=== PATIENT | female | born 2000 | race Caucasian/White ===

== ENCOUNTER 2024-07-06 15:58 | Emergency (ER) | payer OTHER, SELFPAY ==
[2024-07-06 16:06] VITALS: BP 116/72; PULSE 70; RESP 17; TEMP 36.5; O2SAT 97
--- NOTE | 2024-07-06 16:15 | DI.RAD_ITS ---
Exam(s) XR ANKLE LT COMPLETE EXAM: XR ANKLE LT COMPLETE CLINICAL HISTORY: L ankle pain, swelling to lateral aspect s/p twist. TECHNIQUE: 2D digital imaging was performed. COMPARISON: No exams were available for comparison FINDINGS: 3 views No evidence of fracture nor widening the ankle mortise. Talar dome unremarkable. Bone density sunni l. No osseous lesions. No osseous tarsal coalition. IMPRESSION: No acute osseous findings in the ankle. DATA REPOSITORY: RADIATION DOSE DELIVERED:
--- NOTE | 2024-07-06 16:40 | ED.GENADUL_ITS ---
Discharge Plan Disposition Patient Disposition: Home Discharge Details Clinical Impression: Ankle sprain Primary Care Provider: None,None ED Provider: Karla Ahumada Home Meds and New Rx's Prescriptions: No Action No Known Home Meds Discharge Instructions Instructions: Ankle Sprain ED Additional Instructions: Your x-ray was negative for fracture. I encourage you to do mobilization of your ankle, use Fredi bandage as needed, and weight-bear as tolerated. Continue ibuprofen and Tylenol as needed. Ice and elevate above heart level frequently to help reduce swelling and pain I advise you to follow-up with express care to have ankle rechecked if you are not feeling significantly better in the next 2 to 3 weeks. It would also be a good idea for you to establish care with a local area with a primary care provider. Discharge Data Discharge Date/Time-TO BE ENTERED AT DEPARTURE: 07/06/24 18:23 HPI General Date/Time Provider Initiated Documentation: 07/06/24 16:06 . HPI Narrative: Ariela is a 24 year old female who presents to the emergency dept today for evaluation of L lateral ankle pain. She reports he was kicking a baseball when she twisted her ankle, causing her to softly fall to the ground. She did hear a pop; denies other injuries. She was initially able to ambulate after the incident. Denies previous ankle injury, distal numbness/tingling, knee pain. Took ibuprofen and APAP prior to arrival. Physical exam remarkable for ecchymosis and swelling to lateral malleolus of L ankle. +CMS to toes, distal pulses intact. No overlying abrasions/skin tears/lacerations. D/dx includes but is not limited to: ankle sprain, distal fibula fracture, other soft tissue injury. No red flags concerning for neurovascular compromise. I independently interpreted the following tests: X-ray reassuring, no acute fracture noted. This was confirmed by radiology. Reviewed discharge instructions for ankle sprain with patient, including RICE, pain control, and importance of establishing care with PCP. Patient came in with Fredi bandage and crutches. Recommend weightbearing as tolerated. She is agreeable with plan of care. Recommend follow-up with express care if symptoms persist, as referral to orthopedics may be helpful. Related Data Home Medications ?Medication ?Instructions ?Recorded ?Confirmed Unknown [No Known Home Meds] 07/06/24 07/06/24 Allergies Allergy/AdvReac Type Severity Reaction Status Date / Time No Known Allergies Allergy Unverified 07/06/24 16:10 General Stated Complaint: Orthopedic SUDHIR: 3 Review of Systems Narrative: see HPI Exam Const General: cooperative, healthy appearing, comfortable and no acute distress Nutritional Appearance: average body habitus Orientation: alert and oriented x3 HENMT Head: normocephalic and atraumatic Resp Effort & Inspection: normal respiratory effort and able to speak in complete sentences Skin General skin exam: no rashes or lesions noted Extrem General: no pedal edema and no calf tenderness Right lower extremity: normal to inspection Left lower extremity: normal capillary refill and ankle Details: tenderness, swelling Details: laterally, abnormal ROM (decreased due to pain) and ecchymosis (lateral malleolus); no abrasions, no lacerations, no foreign bodies and no penetrating wound Course Vital Signs Vital signs: Vital Signs Temperature 36.5 C 07/06/24 16:06 Pulse 70 07/06/24 16:06 Respiratory Rate 17 07/06/24 16:06 Blood Pressure 116/72 07/06/24 16:06 Pulse Oximetry 97 07/06/24 16:06 Temperature 36.5 C 07/06/24 16:06 Temperature Source Temporal Artery Scan 07/06/24 16:06 Pulse 70 07/06/24 16:06 Respiratory Rate 17 07/06/24 16:06 Respiratory Effort Normal, Non-Labored 07/06/24 16:26 Blood Pressure 116/72 07/06/24 16:06 Pulse Oximetry 97 07/06/24 16:06 Oxygen Delivery Method Room Air 07/06/24 16:06 Oxygen Flow Rate 0 07/06/24 16:06 Pain Level 3 07/06/24 16:26 Lab/Test Results Lab/Test Results: POC- Test(urine) Negative Medical Decision Making Imaging Data Radiologic Study: Radiologist's impression: Exam(s) XR ANKLE LT COMPLETE EXAM: XR ANKLE LT COMPLETE CLINICAL HISTORY: L ankle pain, swelling to lateral aspect s/p twist. TECHNIQUE: 2D digital imaging was performed. COMPARISON: No exams were available for comparison FINDINGS: 3 views No evidence of fracture nor widening the ankle mortise. Talar dome unremarkable. Bone density normal. No osseous lesions. No osseous tarsal coalition. IMPRESSION: No acute osseous findings in the ankle. Quality:SDOH Health Related Social Needs: No Data to Display PFSH All Active Problems (Updated 07/06/24 @ 18:21 by Karla Mckeon) Ankle sprain (Acute) Social History Smoking/Tobacco Use Status: Never Smoking risk assessment performed?: Yes Alcohol Intake: never Drug use: Occasionally Substance use type: marijuana Housing: house Do you feel safe at home: Yes Do you feel safe in your relationship?: Yes
--- OUTSIDE RECORDS SUMMARY | 2024-07-06 17:40 | XMS_ITS | Referral Summary ---
Author Organization [facility] Address [address] [place] [address] Care Team Providers Care Engineering Technician Name Role Phone Unknown, Provider Primary Care Provider Social History Tobacco Use Types Packs/Day Years Used Date Smoking Tobacco: Never Assessed Sex and Gender Information Value Date Recorded Sex Assigned at Not on file Gender Identity Not on file Sexual Orientation Not on file Plan of Treatment Not on file Care Teams Engineering Technician Relationship Specialty Start Date End Date Unknown, Provider, PCP - General 07/27/15
--- OUTSIDE RECORDS SUMMARY | 2024-07-06 17:40 | XMS_ITS | Encounter Summary ---
Author Organization [facility] Address [address] [place] [address] Care Team Providers Care Bias Binding Cutter Name Role Phone Unknown, Provider Primary Care Provider [phone] Encounter Details Date Type Department Care Team (Late st Contact Info) Description 12/18/2019 Lab Requisition [facility] Pathology & Laboratory Medicine - [address] [address] Unknown, Provider, Social History Tobacco Use Types Packs/Day Years Used Date Smoking Tobacco: Never Assessed Sex and Gender Information Value Date Recorded Sex Assigned at Not on file Gender Identity Not on file Sexual Orientation Not on file documented as of this encounter Plan of Treatment Not on file documented as of this encounter Procedures Procedure Name Priority Date/Time Associated Diagnosis Comments CHLAMYDIA/N. GONORRHOEAE AMPLIFIED NUCLEIC ACID Routine 12/18/2019 16:46 EDT documented in this encounter Results * CHLAMYDIA/N. GONORRHOEAE AMPLIFIED RNA (12/18/2019 16:46 EDT) Neisseria gonorrhoeae Result Negative Negative 12/19/2019 12:58 EDT [facility] Chlamydia trachomatis Result Negative Negative 12/19/2019 12:58 EDT [facility] Swab ENTIRE VAGINA / Unknown 12/18/2019 16:46 EDT 12/18/2019 21:00 EDT Provider Unknown MICROBIOLOGY - GENER AL ORDERABLES [facility] [address] [place] [address] documented in this encounter Visit Diagnoses Not on filedocumented in this encounter Care Teams Bias Binding Cutter Relationship Specialty Start Date End Date Unknown, Provider, PCP - General 07/27/15 documented as of this encounter
--- OUTSIDE RECORDS SUMMARY | 2024-07-06 17:40 | XMS_ITS | Clinical Summary ---
Author Organization [facility] Address [address] [place] [address] Care Team Providers Care Paster Operator Name Role Phone Unknown, Provider Primary Care Provider [phone] Social History Tobacco Use Types Packs/Day Years Used Date Smoking Tobacco: Never Assessed Sex and Gender Information Value Date Recorded Sex Assigned at Not on file Gender Identity Not on file Sexual Orientation Not on file Plan of Treatment Health Maintenance Due Date Last Done Comments Hepatitis C Screen 2002 Hepatitis B Vaccine (1 of 3 - 19+ 3-dose series) 02/21 COVID-19 Vaccine (2022-24 season) 2023 Care Teams Paster Operator Relationship Specialty Start Date End Date Unknown, Provider, PCP - General 07/27/15
== END 2024-07-06 18:23 | disposition home or self-care (01) ==
PROVIDERS: Emergency Provider Nurse Practitioner Family
DX: S93.402A Sprain of unspecified ligament of left ankle, initial encounter (principal); X50.1XXA Overexertion from prolonged static or awkward postures, initial encounter; Y93.89 Activity, other specified; Y92.89 Other specified places as the place of occurrence of the external cause
CPT/HCPCS: 81025; 99284; 73610; 99283